=== PATIENT | female | born 1965 | race Caucasian/White ===

== ENCOUNTER 2025-04-18 09:18 | Outpatient (CLI) | payer BC | END 2025-04-18 09:19 | disposition home or self-care (01) | LOC: BICMAMMO 09:18 | PROVIDERS: ATTEND Internal Medicine Rheumatology | DX: M81.0 Age-related osteoporosis without current pathological fracture (principal); M85.89 Other specified disorders of bone density and structure, multiple sites | CPT/HCPCS: 77080 ==